=== PATIENT | male | born 1995 | race Caucasian/White ===

== ENCOUNTER 2022-12-25 16:50 | Emergency (ER) | payer MEDICAID ==
[~2022-12-25] VITALS: Ht 172.7 cm; Wt 97.6 kg
[~2022-12-25 16:50] MED LIST: NO HOME MEDS
[2022-12-25 17:13] VITALS: BP 137/95
[2022-12-25 17:13] LABS: BASOPHILS # (AUTO) 0.1 X10'3 (0-0.2); BASOPHILS % (AUTO) 0.5 % (0-1); EOSINOPHILS # (AUTO) 0.4 X10'3 (0-0.9); EOSINOPHILS % (AUTO) 3.3 % (0-6); HEMOGLOBIN 14.4 g/dl (14.0-17.9); LYMPHOCYTES # (AUTO) 2.3 X10'3 (1.1-4.8); LYMPHOCYTES % (AUTO) 19.3 % (21-51); MEAN CORPUSCULAR HEMOGLOBIN 28.8 PG (27.0-31.0); MEAN CORPUSCULAR HGB CONC 32.8 g/dL (33.0-36.5); MEAN CORPUSCULAR VOLUME 87.8 FL (78-98); MEAN PLATELET VOLUME 7.8 FL (7.4-10.4); MONOCYTES # (AUTO) 0.8 X10'3 (0-0.9); MONOCYTES % (AUTO) 6.5 % (2-12); NEUTROPHILS # (AUTO) 8.3 X10'3 (1.8-7.7); NEUTROPHILS % (AUTO) 70.4 % (42-75); PLATELET COUNT 245 X10'3 (140-440); RED BLOOD COUNT 5.01 X10'6 (4.70-6.10); RED CELL DISTRIBUTION WIDTH 12.9 % (11.5-14.5); WHITE BLOOD COUNT 11.8 X10'3 (4.5-11.0)
[2022-12-25 17:23] LABS: ALANINE AMINOTRANSFERASE 57 U/L (12-78); ALBUMIN/GLOBULIN RATIO 1.3 (1.1-1.5); ALKALINE PHOSPHATASE 99 IU/L (46-116); ANION GAP 4 (8-16); ASPARTATE AMINO TRANSFERASE 24 U/L (10-37); BILIRUBIN,TOTAL 0.3 MG/DL (0.1-1.0); BLOOD UREA NITROGEN 13 MG/DL (7-18); BUN/CREATININE RATIO 17.8 (10.0-20.0); CALCIUM 8.9 MG/DL (8.5-10.1); CHLORIDE 105 MMOL/L (99-107); CREATININE 0.73 MG/DL (0.60-1.10); GLUCOSE 84 MG/DL (70-104); POTASSIUM 4.2 MMOL/L (3.5-5.1); SODIUM 140 MMOL/L (135-145); TOTAL CARBON DIOXIDE 30.8 MMOL/L (24-32); eGFR > 90 ML/MIN
[2022-12-25] MEDS ORDERED: ipratropium/albuterol 3ml nebule NEB STA (19:32)
[2022-12-25] MEDS ORDERED: predniSONE 20 mg tablet PO ONE (19:40)
[2022-12-25] MEDS ORDERED: ALBU18HF2 INH (20:26)
[2022-12-25] MEDS ORDERED: AZIT-164 PO (20:26)
[2022-12-25] MEDS ORDERED: PRED20TA PO (20:26)
== END 2022-12-25 21:16 | disposition home or self-care (01) ==
LOC: ER 16:51
DX: J40 Bronchitis, not specified as acute or chronic (principal); Z79.899 Other long term (current) drug therapy
CPT/HCPCS: 36415; 71045; 80053; 83880; 84484; 85025; 93005; 94640; 99285; J7512; 94760

== ENCOUNTER 2023-01-12 22:20 | Inpatient (IN) | payer MEDICAID ==
[~2023-01-12] VITALS: Ht 175.3 cm; Wt 97.7 kg
[~2023-01-12 22:20] MED LIST changes: +ALBU18HF2 INH; +AZIT-164 PO; +PRED20TA PO
[2023-01-12] MEDS ORDERED: albuterol 2.5 MG/3 ML nebule NEB ONE (22:35)
[2023-01-12] MEDS ORDERED: normal saline 1000ML IV soln IVB ONE (22:35)
[2023-01-12] MEDS ORDERED: methylPREDNISolone sod succ 125mg/2ml vial IV ONE (22:35)
[2023-01-13] MEDS ORDERED: albuterol 2.5 MG/3 ML nebule CONTNEB PRN
[2023-01-13] MEDS ORDERED: magnesium 2GM in 50ml NS 50 ML IV ONE (01:20)
[2023-01-13 01:36] LABS: BASOPHILS % (AUTO) 0.1 % (0-1); EOSINOPHILS # (AUTO) 0.1 X10'3 (0-0.9); EOSINOPHILS % (AUTO) 0.9 % (0-6); HEMATOCRIT 39.6 % (42.0-52.0); HEMOGLOBIN 13.3 g/dl (14.0-17.9); LYMPHOCYTES # (AUTO) 0.6 X10'3 (1.1-4.8); LYMPHOCYTES % (AUTO) 5.8 % (21-51); MEAN CORPUSCULAR HEMOGLOBIN 29.4 PG (27.0-31.0); MEAN CORPUSCULAR HGB CONC 33.7 g/dL (33.0-36.5); MEAN CORPUSCULAR VOLUME 87.4 FL (78-98); MEAN PLATELET VOLUME 7.8 FL (7.4-10.4); MONOCYTES # (AUTO) 0.3 X10'3 (0-0.9); MONOCYTES % (AUTO) 2.4 % (2-12); NEUTROPHILS # (AUTO) 9.7 X10'3 (1.8-7.7); NEUTROPHILS % (AUTO) 90.8 % (42-75); PLATELET COUNT 178 X10'3 (140-440); RED BLOOD COUNT 4.53 X10'6 (4.70-6.10); RED CELL DISTRIBUTION WIDTH 12.9 % (11.5-14.5); WHITE BLOOD COUNT 10.7 X10'3 (4.5-11.0)
[2023-01-13 01:49] LABS: ALANINE AMINOTRANSFERASE 45 U/L (12-78); ALBUMIN 3.6 G/DL (3.4-5.0); ALBUMIN/GLOBULIN RATIO 1.2 (1.1-1.5); ALKALINE PHOSPHATASE 88 IU/L (46-116); ANION GAP 12 (8-16); ASPARTATE AMINO TRANSFERASE 18 U/L (10-37); BILIRUBIN,TOTAL 0.5 MG/DL (0.1-1.0); BLOOD UREA NITROGEN 11 MG/DL (7-18); BUN/CREATININE RATIO 14.1 (10.0-20.0); CALCIUM 8.4 MG/DL (8.5-10.1); CHLORIDE 106 MMOL/L (99-107); CREATININE 0.78 MG/DL (0.60-1.10); GLUCOSE 133 MG/DL (70-104); MAGNESIUM 1.8 MG/DL (1.5-2.4); POTASSIUM 3.3 MMOL/L (3.5-5.1); SODIUM 142 MMOL/L (135-145); TOTAL CARBON DIOXIDE 24.1 MMOL/L (24-32); TOTAL PROTEIN 6.5 G/DL (6.4-8.2); eGFR > 90 ML/MIN
[2023-01-13] MEDS ORDERED: magnesium oxide 400mg tablet PO ONE (01:55)
[2023-01-13] MEDS ORDERED: potassium Cl 20 mEq SR tablet PO ONE (01:55)
[2023-01-13] MEDS ORDERED: albuterol 2.5 MG/3 ML nebule NEB PRN (02:40)
[2023-01-13] MEDS ORDERED: potassium Cl 40MEQ/1/2NS 520ml 520 ML IV PRN (02:40)
[2023-01-13] MEDS ORDERED: potassium Cl 20 mEq SR tablet PO PRN (02:40)
[2023-01-13] MEDS ORDERED: mag hydrox/Alum hydrox/simeth 30ml oral suspension PO PRN (02:40)
[2023-01-13] MEDS ORDERED: magnesium 4gm in 100ml NS 100 ML IV PRN (02:40)
[2023-01-13] MEDS ORDERED: acetaminophen 325mg tablet PO PRN (02:40)
[2023-01-13] MEDS ORDERED: magnesium hydroxide 30ml (MOM) UD suspension PO PRN (02:40)
[2023-01-13] MEDS ORDERED: ondansetron/PF 4mg/2ml inj IV PRN (02:40)
[2023-01-13] MEDS ORDERED: ipratropium/albuterol 3ml nebule NEB PRN (02:40)
[2023-01-13] MEDS ORDERED: albuterol 2.5 MG/3 ML nebule NEB ONE (04:15)
[2023-01-13 04:46] LABS: ETHANOL < 0.010 GM/DL (0.0-0.010)
--- NOTE | 2023-01-13 06:23 | NUR ---
SPOKE WITH PTS MOTHER WHO WAS REQUESTING AN UPDATE WITH PTS PERMISSION.
[2023-01-13] MEDS: methylPREDNISolone sod succ/PF 40mg inj. IV SCH ×2 (08:20→16:06)
[2023-01-13] MEDS: K and/or MAG REPLACEMENT MC SCH ×2 (08:34→20:00)
[2023-01-13] MEDS: docusate sod 100mg capsule PO SCH ×2 (09:11→20:11)
[2023-01-13] MEDS: potassium Cl 20 mEq SR tablet PO PRN ×2 (09:11→18:37)
[2023-01-13] MEDS: nicotine 21mg patch - 24 hr TD SCH (10:20)
[2023-01-13 10:49] LABS: CLARITY,URINE CLEAR (Clear); COLOR,URINE YELLOW (Yellow); GLUCOSE, URINE 500 mg/dl (Neg); KETONES,URINE TRACE mg/dl (Neg); LEUKOCYTE ESTERASE ,URINE NEGATIVE (Neg); NITRITES, URINE NEGATIVE (Neg); OCCULT BLOOD,URINE NEGATIVE (Neg); PROTEIN,URINE NEGATIVE (Neg); UROBILINOGEN,URINE 0.2 E.U/dL (0.2-1.0)
[2023-01-13 10:53] LABS: UA COLLECTION TYPE VOIDED
[2023-01-13 11:03] LABS: URINE AMPHETAMINE SCREEN POSITIVE (Neg); URINE BARBITUATE SCREEN NEGATIVE (Neg); URINE BENZODIAZEPINES SCREEN NEGATIVE (Neg); URINE CANNABINOID SCREEN NEGATIVE (Neg); URINE COCAINE SCREEN NEGATIVE (Neg); URINE METHADONE SCREEN NEGATIVE (Neg); URINE OPIATE SCREEN NEGATIVE (Neg); URINE PHENCYCLIDINE SCREEN NEGATIVE (Neg)
[2023-01-13] MEDS: CefTRIAXone/D5W-Rocephin 1gm 50 ML IV SCH (11:21)
[2023-01-13 13:07] VITALS: BP 142/79
--- NOTE | 2023-01-13 14:25 | NUR ---
PAGER ID: [phone] MESSAGE: Vika Tavarez [id number] Re: [id number] Zaheer, please call patient very anxious can we get Ativan
--- NOTE | 2023-01-13 15:15 | NUR ---
PAGER ID: [phone] MESSAGE: Vika Tavarez [id number] Re: jaimie [id number] patient anxious can we get ativan ordered for him? please tae
[2023-01-13] MEDS: levalbuterol 0.63mg/3ml nebule IH SCH ×2 (15:20→20:22)
[2023-01-13 18:00] VITALS: BP 143/80
--- NOTE | 2023-01-13 18:00 | NUR ---
Patient in room ORTHO 4015. I have received report from Jana DOMINGO and had the opportunity to ask questions and assume patient care.
--- NOTE | 2023-01-13 18:38 | NUR ---
Pt. currently refusing to wear his oxygen. Educated. Still refuses stating "I'm trying to breathe better without it."
--- NOTE | 2023-01-13 19:19 | NUR ---
Gave report to Ro DOMINGO .
[2023-01-13] MEDS ORDERED: enoxaparin 40mg/0.4ml syringe SQ SCH (20:00)
[2023-01-13] MEDS: buPROPion SR 150mg tablet PO SCH (20:11)
[2023-01-13] MEDS ORDERED: LORazepam 1 MG tablet PO PRN (21:30)
[2023-01-13 22:00] VITALS: BP 136/82
--- NOTE | 2023-01-13 22:39 | NUR ---
pAGED dR chaparro Addendum: 01/13/23 at 2241 by Celeste Burns RN Paged Dr Fatima to get a order for ativan as patient was making threatening remarks to his roommate and roomate needed to be moved. advised to give 1mg of ativan po q4h for anxiety and agitation. Med was administered. Will continue to monitor
[2023-01-14] MEDS: methylPREDNISolone sod succ/PF 40mg inj. IV SCH ×2 (00:08→08:39)
[2023-01-14] MEDS: potassium Cl 20 mEq SR tablet PO PRN (00:08)
[2023-01-14] MEDS: levalbuterol 0.63mg/3ml nebule IH SCH ×2 (02:40→09:20)
--- NOTE | 2023-01-14 02:54 | NUR ---
Respiratory Therapy offered a breathing treatment to pt. Pt stated " No, Don't wake me up"
[2023-01-14 06:00] VITALS: BP 116/43
--- NOTE | 2023-01-14 06:49 | NUR ---
Patient in room ORTHO 4015. I have received report from Ro and had the opportunity to ask questions and assume patient care.
[2023-01-14 07:04] LABS: BASOPHILS # (AUTO) 0.1 X10'3 (0-0.2); BASOPHILS % (AUTO) 0.4 % (0-1); EOSINOPHILS % (AUTO) 0 % (0-6); HEMATOCRIT 40.8 % (42.0-52.0); HEMOGLOBIN 13.4 g/dl (14.0-17.9); LYMPHOCYTES # (AUTO) 0.7 X10'3 (1.1-4.8); LYMPHOCYTES % (AUTO) 3.3 % (21-51); MEAN CORPUSCULAR HEMOGLOBIN 29.2 PG (27.0-31.0); MEAN CORPUSCULAR HGB CONC 32.9 g/dL (33.0-36.5); MEAN CORPUSCULAR VOLUME 88.6 FL (78-98); MEAN PLATELET VOLUME 8.5 FL (7.4-10.4); MONOCYTES # (AUTO) 0.9 X10'3 (0-0.9); NEUTROPHILS # (AUTO) 20.5 X10'3 (1.8-7.7); NEUTROPHILS % (AUTO) 92.3 % (42-75); PLATELET COUNT 247 X10'3 (140-440); RED CELL DISTRIBUTION WIDTH 13.2 % (11.5-14.5); WHITE BLOOD COUNT 22.2 X10'3 (4.5-11.0)
[2023-01-14 07:24] LABS: ALANINE AMINOTRANSFERASE 40 U/L (12-78); ALBUMIN 3.5 G/DL (3.4-5.0); ALBUMIN/GLOBULIN RATIO 1.1 (1.1-1.5); ALKALINE PHOSPHATASE 90 IU/L (46-116); ANION GAP 10 (8-16); ASPARTATE AMINO TRANSFERASE 20 U/L (10-37); BILIRUBIN,TOTAL 0.3 MG/DL (0.1-1.0); BLOOD UREA NITROGEN 17 MG/DL (7-18); BUN/CREATININE RATIO 22.7 (10.0-20.0); CALCIUM 8.9 MG/DL (8.5-10.1); CHLORIDE 103 MMOL/L (99-107); CREATININE 0.75 MG/DL (0.60-1.10); GLUCOSE 128 MG/DL (70-104); POTASSIUM 4.6 MMOL/L (3.5-5.1); SODIUM 138 MMOL/L (135-145); TOTAL CARBON DIOXIDE 24.9 MMOL/L (24-32); TOTAL PROTEIN 6.7 G/DL (6.4-8.2); eGFR > 90 ML/MIN
[2023-01-14] MEDS: nicotine 21mg patch - 24 hr TD SCH (08:00)
[2023-01-14] MEDS: K and/or MAG REPLACEMENT MC SCH (08:00)
[2023-01-14] MEDS: buPROPion SR 150mg tablet PO SCH (08:39)
[2023-01-14] MEDS: CefTRIAXone/D5W-Rocephin 1gm 50 ML IV SCH (08:39)
[2023-01-14] MEDS: docusate sod 100mg capsule PO SCH (08:39)
[2023-01-14 10:00] VITALS: BP 142/69
[2023-01-14] MEDS ORDERED: METH4TAB81 PO (11:25)
[2023-01-14] MEDS ORDERED: AZI25OT PO (11:25)
[2023-01-14] MEDS ORDERED: NICO-687 TD (11:25)
[2023-01-14] MEDS ORDERED: BUPR-72 PO (11:25)
[2023-01-14] MEDS ORDERED: ADV50250 IH (11:27)
--- NOTE | 2023-01-14 12:42 | NUR ---
Reviewed discharge instructions with patient. Patient was only mildly interested. Immediately prior to discharge, patient was yelling at his small children that were in the room. This attracted the attention of an additional RN. Patient stated he can speak to his children any way he chooses and told the other RN to leave. Patient had stated "it's better than beating them". Patient was given the discharge packet and quickly discharged with any personal items he had with him. patient stated he was going to go home and smoke. Patient was accompanied by a significant other and 3 very small children and was able to walk to the elevator unassisted. Patient discharged outside the hospital.
== END 2023-01-14 12:30 | disposition home or self-care (01) | DRG 133 ==
LOC: ER 22:21 → ED HOLD 01-13 02:43 → ORTHO 4S 01-13 12:38
PROVIDERS: ADMIT Family Medicine; ATTEND Internal Medicine
DX: J96.00 Acute respiratory failure, unspecified whether with hypoxia or hypercapnia (principal); J45.902 Unspecified asthma with status asthmaticus; J45.901 Unspecified asthma with (acute) exacerbation; F19.10 Other psychoactive substance abuse, uncomplicated; J44.9 Chronic obstructive pulmonary disease, unspecified; F15.10 Other stimulant abuse, uncomplicated; E87.6 Hypokalemia; F17.210 Nicotine dependence, cigarettes, uncomplicated; R94.31 Abnormal electrocardiogram [ECG] [EKG]; Z71.6 Tobacco abuse counseling; Z71.51 Drug abuse counseling and surveillance of drug abuser; Z79.899 Other long term (current) drug therapy
CPT/HCPCS: 36415; 71045; 80053; 80305; 80320; 81003; 83735; 85025; 86704; 86705; 86706; 86803; 87081; 87340; 87522; 93005; 94640; 94760; 99285; A4615; A7015; G0378; J0696; J1650; J2920; J2930; J3475; J7030; J7614